=== PATIENT | female | born 1990 | race Hispanic/Latino ===

== ENCOUNTER 2016-05-01 22:56 | Emergency (ER) | payer SELFPAY ==
[2016-05-02] MEDS ORDERED: TYLENOL ONE (00:39)
[2016-05-02] MEDS ORDERED: TYLENOL PO ONE (00:40)
[2016-05-02 01:11] LABS: Basophils % (Auto) 0.2 % (0.0-1.8); Eosinophils % (Auto) 2.5 % (0.0-4.3); Hematocrit 39.1 % (30.3-42.9); Hemoglobin 13.2 gm/dl (10.1-14.3); Mean Corpuscular HGB Conc 34 % (30-34); Mean Corpuscular Hemoglobin 31 pg (28-32); Mean Corpuscular Volume 91 fl (79-97); Platelet Count 204 K/mm3 (140-440); Red Blood Count 4.27 M/mm3 (3.65-5.03); Red Cell Distribution Width 12.5 % (13.2-15.2)
[2016-05-02 01:22] LABS: INR 1.03 (0.87-1.13)
[2016-05-02 01:31] LABS: Partial Thromboplastin Time 28.5 Sec. (24.2-36.6)
[2016-05-02 01:35] LABS: Alanine Aminotransferase 19 units/L (7-56); Albumin 3.6 g/dL (3.9-5); Albumin/Globulin Ratio 1.2 %; Alkaline Phosphatase 72 units/L (35-129); Anion Gap 15 mmol/L; Bilirubin,Total 0.2 mg/dL (0.1-1.2); Blood Urea Nitrogen 12 mg/dL (7-17); Calcium 8.8 mg/dL (8.4-10.2); Carbon Dioxide 25 mmol/L (22-30); Chloride 102.8 mmol/L (98-107); Glucose 90 mg/dL (65-100); Potassium 4.1 mmol/L (3.6-5.0); Sodium 139 mmol/L (137-145); Total Protein 6.6 g/dL (6.3-8.2)
[2016-05-02 01:53] LABS: Bilirubin,Direct < 0.2 mg/dL (0-0.2)
[2016-05-02 03:01] VITALS: BP 100/66
[2016-05-02 03:22] LABS: Bilirubin,Urine NEG (Negative); Blood,Urine NEG (Negative); Ketones,Urine NEG (Negative); Leukocyte Esterase,Urine TR (Negative); Nitrite,Urine NEG (Negative); Protein,Urine <15 mg/dL mg/dL (Negative); Urobilinogen,Urine < 2.0 mg/dL (<2.0)
--- NOTE | 2016-05-05 01:34 | ED Elopement Review ---
ED Pt Elopement review - Results review Lab results: Laboratory Tests 05/02/16 05/02/16 05/02/16 00:56 00:56 00:56 WBC 9.0 RBC 4.27 Hgb 13.2 Hct 39.1 MCV 91 MCH 31 MCHC 34 RDW 12.5 L Plt Count 204 Lymph % (Auto) 34.9 [place] % (Auto) 6.8 Eos % (Auto) 2.5 Baso % (Auto) 0.2 Lymph # 3.1 [place] # 0.6 Eos # 0.2 Baso # 0.0 Seg Neutrophils % 55.6 Seg Neutrophils # 5.0 PT 13.4 INR 1.03 APTT 28.5 Sodium 139 Potassium 4.1 Chloride 102.8 Carbon Dioxide 25 Anion Gap 15 BUN 12 Creatinine 0.8 Estimated GFR > 60 BUN/Creatinine Ratio 15.00 Glucose 90 Calcium 8.8 Total Bilirubin 0.2 Direct Bilirubin < 0.2 Indirect Bilirubin 0.0 AST 15 ALT 19 Alkaline Phosphatase 72 Troponin T < 0.010 Total Protein 6.6 Albumin 3.6 L Albumin/Globulin Ratio 1.2 HCG, Qual Urine Color Urine Turbidity Urine pH Ur Specific [place] Urine Protein Urine Glucose (UA) Urine Ketones Urine Blood Urine Nitrite Urine Bilirubin Urine Urobilinogen Ur Leukocyte Esterase Urine WBC (Auto) Urine RBC (Auto) U Epithel Cells (Auto) 05/02/16 05/02/16 00:56 Unknown WBC RBC Hgb Hct MCV MCH MCHC RDW Plt Count Lymph % (Auto) [place] % (Auto) Eos % (Auto) Baso % (Auto) Lymph # [place] # Eos # Baso # Seg Neutrophils % Seg Neutrophils # PT INR APTT Sodium Potassium Chloride Carbon Dioxide Anion Gap BUN Creatinine Estimated GFR BUN/Creatinine Ratio Glucose Calcium Total Bilirubin Direct Bilirubin Indirect Bilirubin AST ALT Alkaline Phosphatase Troponin T Total Protein Albumin Albumin/Globulin Ratio HCG, Qual Negative Urine Color Straw Urine Turbidity Clear Urine pH 6.0 Ur Specific [place] 1.008 Urine Protein <15 mg/dl Urine Glucose (UA) Neg Urine Ketones Neg Urine Blood Neg Urine Nitrite Neg Urine Bilirubin Neg Urine Urobilinogen < 2.0 Ur Leukocyte Esterase Tr Urine WBC (Auto) 1.0 Urine RBC (Auto) 1.0 U Epithel Cells (Auto) 2.0 - Call Back decision Pt Call Back Decision: Pt to F/U with PMD
== END 2016-05-02 04:30 | disposition left against medical advice (07) ==
LOC: ED 22:56
DX: R22.43 Localized swelling, mass and lump, lower limb, bilateral (principal); R42 Dizziness and giddiness; J45.909 Unspecified asthma, uncomplicated; Z88.0 Allergy status to penicillin; Z88.8 Allergy status to other drugs, medicaments and biological substances; Z53.21 Procedure and treatment not carried out due to patient leaving prior to being seen by health care provider
CPT/HCPCS: 36415; 80048; 80074; 81001; 84484; 84703; 85025; 85610; 85730; 93005; 93010

== ENCOUNTER 2016-05-09 11:38 | Emergency (ER) | payer SELFPAY | END 2016-05-09 12:35 | disposition left against medical advice (07) | LOC: ED 11:38 | DX: K08.89 Other specified disorders of teeth and supporting structures (principal); Z53.21 Procedure and treatment not carried out due to patient leaving prior to being seen by health care provider ==

== ENCOUNTER 2016-05-12 08:47 | Emergency (ER) | payer SELFPAY ==
[2016-05-12 09:15] VITALS: BP 131/87
[2016-05-12 09:59] LABS: Basophils % (Auto) 0.3 % (0.0-1.8); Eosinophils % (Auto) 0.2 % (0.0-4.3); Hematocrit 39.8 % (30.3-42.9); Hemoglobin 13.4 gm/dl (10.1-14.3); Mean Corpuscular HGB Conc 34 % (30-34); Mean Corpuscular Hemoglobin 30 pg (28-32); Mean Corpuscular Volume 90 fl (79-97); Platelet Count 215 K/mm3 (140-440); Red Blood Count 4.42 M/mm3 (3.65-5.03); Red Cell Distribution Width 12.4 % (13.2-15.2); White Blood Count 9.4 K/mm3 (4.5-11.0)
[2016-05-12 10:15] LABS: Alanine Aminotransferase 17 units/L (7-56); Albumin 3.9 g/dL (3.9-5); Albumin/Globulin Ratio 1.3 %; Alkaline Phosphatase 85 units/L (35-129); Anion Gap 16 mmol/L; Bilirubin,Total 0.7 mg/dL (0.1-1.2); Blood Urea Nitrogen 6 mg/dL (7-17); Calcium 9.2 mg/dL (8.4-10.2); Carbon Dioxide 21 mmol/L (22-30); Chloride 105.1 mmol/L (98-107); Glucose 113 mg/dL (65-100); Lipase 16 units/L (13-60); Sodium 138 mmol/L (137-145)
== END 2016-05-12 13:47 | disposition left against medical advice (07) ==
LOC: ED 08:47
DX: R10.30 Lower abdominal pain, unspecified (principal); R20.0 Anesthesia of skin; Z53.21 Procedure and treatment not carried out due to patient leaving prior to being seen by health care provider
CPT/HCPCS: 36415; 80053; 83690; 85025